=== PATIENT | male | born 1975 | race Hispanic/Latino ===

== ENCOUNTER 2017-12-12 10:21 | Emergency (ER) | payer SELFPAY ==
--- NOTE | 2017-12-12 10:39 | ED.PDOC ---
History of Present Illness - General Chief Complaint: Bite: Animal/Insect/Human Stated Complaint: Scorpion sting to L leg Time Seen by Provider: 12/12/17 10:34 Source: patient - History of Present Illness Timing/Duration: 1/2 hour Improving Factors: rest Worsening Factors: nothing Associated Symptoms: denies symptoms Review of Systems - Review of Systems Constitutional: Denies: chills, diaphoresis, weakness EENTM: Denies: blurred vision, double vision, throat pain Respiratory: Denies: cough, short of breath, wheezing Cardiology: Denies: chest pain, palpitations, syncope Gastrointestinal/Abdominal: Denies: abdominal pain, diarrhea, nausea, vomiting Genitourinary: States: no symptoms reported Musculoskeletal: States: no symptoms reported Skin: Denies: change in color, rash Neurological: Denies: headache, numbness, paresthesia, tingling, tremors, weakness Physical Exam - Physical Exam General Appearance: Alert, Anxious Extremity: normal range of motion, non-tender, no pedal edema - trace edema at site of sting on proximal, anterior lower L leg, no calf tenderness Neurologic: no motor/sensory deficits, alert, normal mood/affect, oriented x 3 Departure - Departure Clinical Impression: Scorpion sting Qualifiers: Encounter type: initial encounter Injury intent: accidental or unintentional Qualified Code(s): T63.2X1A - Toxic effect of venom of scorpion, accidental ( unintentional), initial encounter Disposition: Discharge to Home or Self Care Departure Forms: ED Discharge - Pt. Copy, Patient Portal Self Enrollment
[2017-12-12 10:42] VITALS: BP 144/96; TEMP 98.2; O2SAT 99
== END 2017-12-12 10:54 | disposition home or self-care (01) ==
LOC: ER 10:21
DX: T63.2X1A Toxic effect of venom of scorpion, accidental (unintentional), initial encounter (principal); Y92.9 Unspecified place or not applicable